=== PATIENT | female | born 1960 | race Caucasian/White ===

== ENCOUNTER → 2016-05-18 | Outpatient (CLI) | payer BC ==
--- NOTE | 2016-05-21 09:15 | MM ---
Reason for exam: screening (asymptomatic). Last mammogram was performed 1 year and 7 months ago. History: Family history of breast cancer in paternal aunt at age 50 and breast cancer in paternal cousin. Benign cyst aspiration of the left breast, November 2009. Cyst aspiration of the left breast, October 2007. Benign excisional biopsy of the right breast, 1993. Physical Findings: A clinical breast exam by your physician is recommended on an annual basis and results should be correlated with mammographic findings. MG Screening Mammo w CAD Bilateral CC and MLO view(s) were taken. Prior study comparison: October 20, 2014, bilateral MG screening mammo w CAD. September 02, 2013, right breast MG work up mamm w CAD RT. The breast tissue is heterogeneously dense. This may lower the sensitivity of mammography. Benign calcifications. There is chronic nodularity bilaterally. No significant changes when compared with prior studies. ASSESSMENT: Benign, BI-RAD 2 RECOMMENDATION: Routine screening mammogram of both breasts in 1 year.
== END | disposition home or self-care (01) ==
LOC: RADMAMWWP 08:10
PROVIDERS: ATTEND Obstetrics & Gynecology
DX: Z12.31 Encounter for screening mammogram for malignant neoplasm of breast (principal); Z80.3 Family history of malignant neoplasm of breast

== ENCOUNTER → 2017-08-08 | Outpatient (CLI) | payer BC ==
--- NOTE | 2017-08-09 10:04 | MM ---
Reason for exam: screening (asymptomatic). Last mammogram was performed 1 year and 3 months ago. History: Family history of breast cancer in paternal aunt at age 50 and breast cancer in paternal cousin. Benign cyst aspiration of the left breast, November 2009. Cyst aspiration of the left breast, October 2007. Benign excisional biopsy of the right breast, 1993. Physical Findings: A clinical breast exam by your physician is recommended on an annual basis and results should be correlated with mammographic findings. MG 3D Screening Mammo W/Cad Bilateral CC and MLO view(s) were taken. Prior study comparison: May 18, 2016, bilateral MG screening mammo w CAD. October 20, 2014, bilateral MG screening mammo w CAD. The breast tissue is heterogeneously dense. This may lower the sensitivity of mammography. Stable calcification fibroid right breast. There is no discrete abnormality. No significant changes when compared with prior studies. ASSESSMENT: Benign, BI-RAD 2 RECOMMENDATION: Routine screening mammogram of both breasts in 1 year.
== END | disposition home or self-care (01) ==
LOC: RADMAMWWP 09:35
PROVIDERS: ATTEND Obstetrics & Gynecology
DX: Z12.31 Encounter for screening mammogram for malignant neoplasm of breast (principal)
CPT/HCPCS: 77063; 77067

== ENCOUNTER → 2018-09-24 | Outpatient (CLI) | payer BC ==
--- NOTE | 2018-09-25 13:11 | MM ---
Reason for exam: screening (asymptomatic). Last mammogram was performed 1 year and 2 months ago. History: Patient is postmenopausal. Family history of breast cancer in paternal aunt at age 50 and breast cancer in paternal cousin. Benign cyst aspiration of the left breast, November 2009. Cyst aspiration of the left breast, October 2007. Benign excisional biopsy of the right breast, 1993. Took hormonal contraceptives for 1 year. Physical Findings: A clinical breast exam by your physician is recommended on an annual basis and results should be correlated with mammographic findings. MG 3D Screening Mammo W/Cad Bilateral CC and MLO view(s) were taken. Prior study comparison: August 08, 2017, bilateral MG 3d screening mammo w/cad. May 18, 2016, bilateral MG screening mammo w CAD. The breast tissue is heterogeneously dense. This may lower the sensitivity of mammography. There is a new round circumscribed right lower inner quadrant mass 3.5-4.5cm from nipple. Benign appearing calcifications in the right breast. No suspicious abnormality in the left breast. ASSESSMENT: Incomplete: need additional imaging evaluation, BI-RAD 0 RECOMMENDATION: Ultrasound of the right breast. (lower inner quadrant) [facility] will attempt to contact patient to return for ultrasound.
== END | disposition home or self-care (01) ==
LOC: RADMAMWWP 10:46
PROVIDERS: ATTEND Obstetrics & Gynecology
DX: Z12.31 Encounter for screening mammogram for malignant neoplasm of breast (principal); Z80.3 Family history of malignant neoplasm of breast
CPT/HCPCS: 77063; 77067

== ENCOUNTER → 2018-10-07 | Outpatient (CLI) | payer BC ==
--- NOTE | 2018-10-07 09:56 | USB ---
Reason for exam: additional evaluation requested from abnormal screening. History: Patient is postmenopausal. Family history of breast cancer in paternal aunt at age 50 and breast cancer in paternal cousin. Benign cyst aspiration of the left breast, November 2009. Cyst aspiration of the left breast, October 2007. Benign excisional biopsy of the right breast, 1993. Took hormonal contraceptives for 1 year. Physical Findings: Nurse did not find any significant physical abnormalities on exam. US Breast Workup Limited RT Right limited breast ultrasound including focal area of concern, retroareolar and axilla demonstrates a 0.5 x 0.4 x 0.5cm oval, cystic lesion at 3 o'clock, correlates with mammographic finding and a 1.2 x 1.4 x 1.2cm oval, cystic lesion at the posterior nipple, correlates with fat necrosis on mammogram. These results were verbally communicated with the patient and result sheet given to the patient on 10/07/18. ASSESSMENT: Benign, BI-RAD 2 RECOMMENDATION: Return to routine screening mammogram schedule for both breasts.
== END | disposition home or self-care (01) ==
LOC: RADUSWWP 08:48
PROVIDERS: ATTEND Obstetrics & Gynecology
DX: R92.8 Other abnormal and inconclusive findings on diagnostic imaging of breast (principal)

== ENCOUNTER → 2020-01-15 | Outpatient (CLI) | payer BC ==
--- NOTE | 2020-01-19 11:38 | MM ---
Reason for exam: screening (asymptomatic). Last mammogram was performed 1 year and 4 months ago. History: Patient is postmenopausal. Family history of breast cancer in paternal aunt at age 50 and breast cancer in paternal cousin. Benign cyst aspiration of the left breast, November 2009. Cyst aspiration of the left breast, October 2007. Benign excisional biopsy of the right breast, 1993. Took hormonal contraceptives for 1 year. Physical Findings: A clinical breast exam by your physician is recommended on an annual basis and results should be correlated with mammographic findings. MG 3D Screening Mammo W/Cad Bilateral CC and MLO view(s) were taken. Prior study comparison: September 24, 2018, bilateral MG 3d screening mammo w/cad. August 08, 2017, bilateral MG 3d screening mammo w/cad. Finding: There is a 4 mm round mass located 10.5 cm from the nipple in the 6 o'clock posterior position of the right breast. Calcifications. New finding since September 24, 2018 and August 08, 2017. ASSESSMENT: Incomplete: need additional imaging evaluation, BI-RAD 0 RECOMMENDATION: Special view mammogram and ultrasound of the right breast. [facility] will attempt to contact patient to return for supplemental views and ultrasound.
== END | disposition home or self-care (01) ==
LOC: RADMAMWWP 14:43
PROVIDERS: ATTEND Obstetrics & Gynecology
DX: Z12.31 Encounter for screening mammogram for malignant neoplasm of breast (principal); Z80.3 Family history of malignant neoplasm of breast
CPT/HCPCS: 77063; 77067

== ENCOUNTER → 2020-01-28 | Outpatient (CLI) | payer BC ==
--- NOTE | 2020-01-28 13:22 | MM ---
Reason for exam: additional evaluation requested from abnormal screening. Last mammogram was performed less than 1 month ago. History: Patient is postmenopausal. Family history of breast cancer in paternal aunt at age 50 and breast cancer in paternal cousin. Benign cyst aspiration of the left breast, November 2009. Cyst aspiration of the left breast, October 2007. Benign excisional biopsy of the right breast, 1993. Took hormonal contraceptives for 1 year. Physical Findings: Nurse did not find any significant physical abnormalities on exam. MG 3D Work Up W/Cad RT CC and MLO view(s) were taken of the right breast. Prior study comparison: January 15, 2020, bilateral MG 3d screening mammo w/cad. October 07, 2018, right breast US breast workup limited RT. September 24, 2018, bilateral MG 3d screening mammo w/cad. The breast tissue is heterogeneously dense. This may lower the sensitivity of mammography. Finding: There is a circumscribed oval mass in the 6 o'clock posterior position of the right breast. New finding since October 07, 2018. These results were verbally communicated with the patient and result sheet given to the patient on 01/28/20. ASSESSMENT: Incomplete: need additional imaging evaluation, BI-RAD 0 RECOMMENDATION: Ultrasound of the right breast.
--- NOTE | 2020-01-28 13:25 | USB ---
Reason for exam: additional evaluation requested from abnormal screening. History: Patient is postmenopausal. Family history of breast cancer in paternal aunt at age 50 and breast cancer in paternal cousin. Benign cyst aspiration of the left breast, November 2009. Cyst aspiration of the left breast, October 2007. Benign excisional biopsy of the right breast, 1993. Took hormonal contraceptives for 1 year. US Breast Workup Limited RT Technologist: Madisyn Estrella Right limited breast ultrasound including focal area of concern, retroareolar and axilla demonstrates a 0.5 x 0.5 x 0.4cm cystic cluster at 5 o'clock, a 0.4 x 0.3 x 0.2cm oval lesion too small to characterize at 6 o'clock, probably cystic and likely correlates with the mammmogram and a 1.3 x 1.3 x 1.2cm circular area of fat necrosis at 7 o'clock. Scanned 5-8 o'clock. 6 month follow up mammogram recommended. These results were verbally communicated with the patient and result sheet given to the patient on 01/28/20. ASSESSMENT: Probably benign, BI-RAD 3 RECOMMENDATION: Follow-up diagnostic mammogram of the right breast in 6 months.
== END | disposition home or self-care (01) ==
LOC: RADMAMWWP 09:46
PROVIDERS: ATTEND Obstetrics & Gynecology
DX: R92.8 Other abnormal and inconclusive findings on diagnostic imaging of breast (principal)
CPT/HCPCS: 77061; 77065

== ENCOUNTER → 2020-08-01 | Outpatient (CLI) | payer BC ==
--- NOTE | 2020-08-02 10:34 | MM ---
Reason for exam: follow-up at short interval from prior study. Last mammogram was performed 6 months ago. History: Patient is postmenopausal. Family history of breast cancer in paternal aunt at age 50 and breast cancer in paternal cousin. Benign cyst aspiration of the left breast, November 2009. Cyst aspiration of the left breast, October 2007. Benign excisional biopsy of the right breast, 1993. Took hormonal contraceptives for 1 year. Physical Findings: Nurse did not find any significant physical abnormalities on exam. MG 3D Diag Mammo W/Cad RT CC and MLO view(s) were taken of the right breast. Prior study comparison: January 28, 2020, right breast MG 3d work up w/cad RT. January 15, 2020, bilateral MG 3d screening mammo w/cad. The breast tissue is heterogeneously dense. This may lower the sensitivity of mammography. Benign calcifications. There is chronic nodularity in the right breast, stable. These results were verbally communicated with the patient and result sheet given to the patient on 08/01/20. ASSESSMENT: Incomplete: need additional imaging evaluation, BI-RAD 0 RECOMMENDATION: Ultrasound of the right breast.
--- NOTE | 2020-08-02 10:36 | USB ---
Reason for exam: additional evaluation requested from abnormal screening. History: Patient is postmenopausal. Family history of breast cancer in paternal aunt at age 50 and breast cancer in paternal cousin. Benign cyst aspiration of the left breast, November 2009. Cyst aspiration of the left breast, October 2007. Benign excisional biopsy of the right breast, 1993. Took hormonal contraceptives for 1 year. US Breast Limited RT Right limited breast ultrasound including focal area of concern, retroareolar and axilla demonstrates several oval, cystic lesions measuring 0.5 x 0.4 x 0.4cm at 5 o'clock, 0.3 x 0.2 x 0.2cm at 6 o'clock, 1.1 x 1.2 x 1.3cm at 7 o'clock and 0.3 x 0.3 x 0.3cm at 9 o'clock. These results were verbally communicated with the patient and result sheet given to the patient on 08/01/20. ASSESSMENT: Benign, BI-RAD 2 RECOMMENDATION: Follow-up diagnostic mammogram of both breasts in 6 months. Ultrasound of the right breast in 6 months.
== END | disposition home or self-care (01) ==
LOC: RADMAMWWP 13:32
PROVIDERS: ATTEND Obstetrics & Gynecology
DX: R92.1 Mammographic calcification found on diagnostic imaging of breast (principal); N60.01 Solitary cyst of right breast; Z78.0 Asymptomatic menopausal state; Z80.3 Family history of malignant neoplasm of breast
CPT/HCPCS: 77061; 77065

== ENCOUNTER → 2021-02-09 | Outpatient (CLI) | payer BC ==
--- NOTE | 2021-02-09 12:41 | MM ---
Reason for exam: additional evaluation requested from prior study. Last mammogram was performed 6 months ago. History: Patient is postmenopausal. Family history of breast cancer in paternal aunt at age 50 and breast cancer in paternal cousin. Benign cyst aspiration of the left breast, November 2009. Cyst aspiration of the left breast, October 2007. Benign excisional biopsy of the right breast, 1993. Took hormonal contraceptives for 1 year. Physical Findings: Nurse did not find any significant physical abnormalities on exam. MG 3D Diag Mammo W/Cad [facility] Bilateral CC and MLO view(s) were taken. Prior study comparison: August 01, 2020, right breast MG 3d diag mammo w/cad RT. January 15, 2020, bilateral MG 3d screening mammo w/cad. September 24, 2018, bilateral MG 3d screening mammo w/cad. The breast tissue is heterogeneously dense. This may lower the sensitivity of mammography. There is chronic nodularity bilaterally. No significant new findings when compared with previous films. These results were verbally communicated with the patient and result sheet given to the patient on 02/09/21. ASSESSMENT: Benign, BI-RAD 2 RECOMMENDATION: Routine screening mammogram of both breasts in 1 year.
--- NOTE | 2021-02-09 12:43 | USB ---
Reason for exam: additional evaluation requested from prior study. History: Patient is postmenopausal. Family history of breast cancer in paternal aunt at age 50 and breast cancer in paternal cousin. Benign cyst aspiration of the left breast, November 2009. Cyst aspiration of the left breast, October 2007. Benign excisional biopsy of the right breast, 1993. Took hormonal contraceptives for 1 year. US Breast Limited RT Right limited breast ultrasound including focal area of concern, retroareolar and axilla demonstrates four cystic lesions measuring 0.5 x 0.5 x 0.5cm at 5 o'clock, 0.5 x 0.3 x 0.5cm at 6 o'clock, 1.2 x 1.1 x 1.2cm at 7 o'clock and 0.5 x 0.3 x 0.4cm at 9 o'clock. These results were verbally communicated with the patient and result sheet given to the patient on 02/09/21. ASSESSMENT: Benign, BI-RAD 2 RECOMMENDATION: Routine screening mammogram of both breasts in 1 year.
== END | disposition home or self-care (01) ==
LOC: RADMAMWWP 07:33
PROVIDERS: ATTEND Obstetrics & Gynecology
DX: R92.8 Other abnormal and inconclusive findings on diagnostic imaging of breast (principal)
CPT/HCPCS: 77062; 77066

== ENCOUNTER 2021-10-13 11:03 | Day surgery (SDC) | payer BC ==
[2021-10-11 16:01] VITALS: BMI 29.7
[~2021-10-13 11:03] MED LIST: LACTATED RINGERS 1,000 ML IV SCH
[2021-10-13 11:45] VITALS: RESP 16; TEMP 97.9
[2021-10-13] MEDS ORDERED: PROPOFOL 10 MG/ML 20 ML VIAL IV ONE (13:36)
--- NOTE | 2021-10-13 13:50 | P.PCN ---
Date of Procedure: 10/13/21 Procedure(s) Performed: BRIEF HISTORY: Patient is a 61-year-old pleasant female scheduled for an elective colonoscopy as a part of gaining for colorectal neoplasia. Her son was diagnosed with colon cancer but has history of ulcerative colitis. PROCEDURE PERFORMED: Colonoscopy. PREOPERATIVE DIAGNOSIS: Screening for colon cancer. IV sedation per Anesthesia. PROCEDURE: After informed consent was obtained, the patient, was brought into the endoscopy unit. IV sedation was administered by Anesthesia under continuous monitoring. Digital rectal examination was normal. Initially the Olympus CF-160 flexible video colonoscope was then inserted in the rectum, gradually advanced into the cecum without any difficulty. Careful examination was performed as the scope was gradually being withdrawn. Ileocecal valve and the appendiceal orifice were visualized and appeared normal. Prep was excellent. Mucosa of the cecum, ascending colon, transverse colon, descending colon, sigmoid colon, and rectum appeared normal. Retroflexion was performed in the rectum and small internal were seen. The patient tolerated the procedure well. IMPRESSION: Normal-appearing colon from rectum to cecum with no evidence of colorectal neoplasia . RECOMMENDATIONS: Findings of this examination were discussed with the patient well as her family. She was advised to have a repeat screening colonoscopy in 5 years from now because of the family history of colon cancer.
[2021-10-13 14:11] VITALS: PULSE 52
[2021-10-13 14:15] VITALS: BP 148/75
== END 2021-10-13 14:59 | disposition home or self-care (01) ==
LOC: ORWHC2ENDO 11:03
PROVIDERS: ATTEND Internal Medicine Gastroenterology
DX: Z12.11 Encounter for screening for malignant neoplasm of colon (principal); Z80.0 Family history of malignant neoplasm of digestive organs; Z88.2 Allergy status to sulfonamides; Z88.5 Allergy status to narcotic agent; Z88.6 Allergy status to analgesic agent
CPT/HCPCS: 45378; J2704

== ENCOUNTER → 2022-02-15 | Outpatient (CLI) | payer BC, MEDICAID ==
--- NOTE | 2022-02-16 09:53 | MM ---
Reason for Exam: Screening (asymptomatic). Last screening mammogram was performed 12 month(s) ago. Patient History: Menarche at age 9. First Full-Term at age 21. Postmenopausal. Patient used Hormonal Contraceptives for 1 year. 11/2009, Benign Cyst Aspiration on the left side. 10/2007, Cyst Aspiration on the Left side. 1993, Benign Excisional Biopsy on the right side. Paternal cousin had breast cancer. Paternal aunt had breast cancer, age 50. Risk Values: Luh 5 year model risk: 1.8%. NCI Lifetime model risk: 7.7%. Prior Study Comparison: 01/28/2020 Right Diagnostic Mammogram, [facility]. 08/01/2020 Right Diagnostic Mammogram, [facility]. 02/09/2021 Bilateral Diagnostic Mammogram, [facility]. Tissue Density: The breast tissue is heterogeneously dense. This may lower the sensitivity of mammography. Findings: Analyzed By CAD. There is no suspicious group of microcalcifications or new suspicious mass in either breast. Overall Assessment: Negative, BI-RAD 1 Management: Screening Mammogram of both breasts in 1 year. A clinical breast exam by your physician is recommended on an annual basis and results should be correlated with mammographic findings. [facility] will attempt to contact patient to return for supplemental views and ultrasound if indicated. Electronically signed and approved by: Leon Dinh DO
== END | disposition home or self-care (01) ==
LOC: RADMAMWWP 09:58
PROVIDERS: ATTEND Obstetrics & Gynecology
DX: Z12.31 Encounter for screening mammogram for malignant neoplasm of breast (principal); Z78.0 Asymptomatic menopausal state; Z80.3 Family history of malignant neoplasm of breast
CPT/HCPCS: 77063; 77067

== ENCOUNTER → 2023-02-14 | Outpatient (CLI) | payer MEDICARE, OTHER ==
--- NOTE | 2023-02-14 11:29 | MM ---
Reason for Exam: Follow-up at short interval from prior study. Last screening mammogram was performed 12 month(s) ago. Patient History: Menarche at age 9. First Full-Term at age 21. Postmenopausal. Patient has history of breast feeding. Patient used Hormonal Contraceptives for 1 year. 11/2009, Benign Cyst Aspiration on the left side. 10/2007, Cyst Aspiration on the Left side. 1993, Benign Excisional Biopsy on the right side. Paternal cousin had breast cancer. Paternal aunt had breast cancer, age 50. Risk Values: Luh 5 year model risk: 1.9%. NCI Lifetime model risk: 7.5%. Tissue Density: The breast tissue is heterogeneously dense. This may lower the sensitivity of mammography. Findings: Analyzed By CAD. Pattern appears symmetrical. Previous asymmetric density within the lower right breast not visualized examination. Benign-appearing calcifications within the mid right breast. No significant interval changes are evident. No suspicious groups of microcalcifications, spiculated or lobular masses, architectural distortion or other secondary signs of malignancy are mammographically apparent. Overall Assessment: Benign, BI-RAD 2 Management: Screening Mammogram of both breasts in 1 year. A negative mammogram report should not preclude additional follow up of suspicious palpable abnormalities. Patient should continue monthly self breast exam. A clinical breast exam by your physician is recommended on an annual basis and results should be correlated with mammographic findings. Electronically signed and approved by: Rajesh Fletcher D.O. Radiologis
== END | disposition home or self-care (01) ==
LOC: RADMAMWWP 10:46
PROVIDERS: ATTEND Obstetrics & Gynecology
DX: R92.331 Mammographic heterogeneous density, right breast (principal); Z78.0 Asymptomatic menopausal state; Z80.3 Family history of malignant neoplasm of breast; Z92.0 Personal history of contraception
CPT/HCPCS: 77066; G0279; 77062

== ENCOUNTER → 2024-02-18 | Outpatient (CLI) | payer MEDICARE, OTHER ==
--- NOTE | 2024-02-18 10:33 | BD ---
EXAMINATION TYPE: Axial Bone Density DATE OF EXAM: 02/18/2024 CLINICAL HISTORY: 63 years old Female. ICD-10 CODE: Z12.31 SCR MAMMO Z78.0 ASYMP RELL STATE , Additi onal History: Height: 5 ft 6 1/2 in Weight: 161 FRAX RISK QUESTIONS: Alcohol (3 or more units per day): no Family History (Parent hip fracture): no Glucocorticoids (More than 3mos): no (Ex: prednisone, prednisolone, methylprednisolone, dexamethasone, and hydrocortisone). History of Fracture in Adulthood: yes Secondary Osteoporosis: 1. Type 1 Diabetes: no 2. Hyperthyroidism: no 3. Menopause before 45: no 4. Malnutrition: no 5. Chronic liver disease: no Rheumatoid Arthritis: no Current Tobacco Use: no RISK FACTORS HISTORY OF: Surgery to Spine/Hip(right/left)/Wrist (right/left): no MEDICATIONS: Thyroid Medications: none Osteoporosis Medications: none EXAM MEASUREMENTS: Bone mineral densitometry was performed using the [employer] System. Bone mineral density as measured about the Lumbar spine is: ----- L1-L4(G/cm2): 1.328 T Score Values are as follows: ----- L1: -0.2 ----- L2: 0.5 ----- L3: 1.5 ----- L4: 2.4 ----- L1-L4: 1.2 Z Score Values are as follows: ----- L1: 1.2 ----- L2: 1.8 ----- L3: 2.9 ----- L4: 3.7 ----- L1-L4: 2.6 prev at [facility] Bone mineral density about the R hip (g/cm2): 0.887 Bone mineral density about the L hip (g/cm2): 0.867 T Score values are as follows: -----R Neck: -1.1 -----L Neck: -1.2 -----R Total: -0.6 -----L Total: -0.7 Z Score values are as follows: -----R Neck: 0.2 -----L Neck: 0.1 -----R Total: 0.5 -----L Total: 0.4 prev done at [facility] FRAX%s: The graph provided illustrates a 14.2 % chance for a major osteoporotic fx and a 1.3 % chance for the hips probability for fx in 10 years time. IMPRESSION: Normal (Values between +1 and -1 indicate normal bone mass). Consider repeating this study in 5 year s or sooner if there is some new clinical indication. NOTE: T-SCORE=SD OF THE YOUNG ADULT MEAN. [facility], , 02/18/2024 10:31 AM
--- NOTE | 2024-02-19 09:51 | MM ---
Reason for Exam: Screening (asymptomatic). Last screening mammogram was performed 12 month(s) ago. Patient History: Menarche at age 9. First Full-Term at age 21. Postmenopausal. Patient has history of breast feeding. Patient used Hormonal Contraceptives for 1 year. 11/2009, Benign Cyst Aspiration on the left side. 10/2007, Cyst Aspiration on the Left side. 1993, Benign Excisional Biopsy on the right side. Paternal cousin had breast cancer, age 40. Paternal aunt had breast cancer, age 50. Risk Values: Luh 5 year model risk: 1.9%. NCI Lifetime model risk: 7.2%. Prior Study Comparison: 02/15/2022 Bilateral MG 3D screening mammo w/cad, [facility]. 06/07/2022 Right MG 3D diag mammo w/cad RT, [facility]. 02/14/2023 Bilateral MG 3D diag mammo w/cad [facility], [facility]. Tissue Density: The breasts are heterogeneously dense, which may obscure small masses. Findings: Analyzed By CAD. There is no suspicious group of microcalcifications or new suspicious mass in either breast. Overall Assessment: Benign, BI-RAD 2 Management: Screening Mammogram of both breasts in 1 year. . Patient should continue monthly self-breast exams. A clinical breast exam by your physician is recommended on an annual basis. This exam should not preclude additional follow-up of suspicious palpable abnormalities. Note on Luh scores and lifetime risk: 1. A Luh score greater than 3% is considered moderate risk. If this is the case, consider specialist referral to assess eligibility for a risk reducing agent. 2. If overall lifetime risk for the development of breast cancer is 20% or higher, the patient may qualify for future screening with alternating mammogram and breast MRI. [facility], , 02/19/2024 9:48 AM. Electronically signed and approved by: Per Thomas M.D. Radiologis
== END | disposition home or self-care (01) ==
LOC: RADMAMWWP 09:21
PROVIDERS: ATTEND Family Medicine
DX: Z12.31 Encounter for screening mammogram for malignant neoplasm of breast (principal); Z78.0 Asymptomatic menopausal state; Z80.3 Family history of malignant neoplasm of breast; R92.333 Mammographic heterogeneous density, bilateral breasts
CPT/HCPCS: 77063; 77067; 77080